=== PATIENT | female | born 1995 | race Caucasian/White ===

== ENCOUNTER 2018-11-28 11:42 | Emergency (ER) | payer MEDICAID ==
[~2018-11-28] VITALS: Ht 160 cm; Wt 52.4 kg
[2018-11-28 11:57] VITALS: BP 102/66
== END 2018-11-28 14:06 | disposition home or self-care (01) ==
LOC: ED 13:12
DX: J36 Peritonsillar abscess (principal)
CPT/HCPCS: 99281